=== PATIENT | male | born 1960 | race African-American/Black ===

== ENCOUNTER 2019-05-11 12:56 | Emergency (ER) | payer MEDICAID ==
[~2019-05-11] VITALS: Ht 188 cm; Wt 100.0 kg
[2019-05-11 14:59] VITALS: BP 126/86
[2019-05-11] MEDS ORDERED: KETOROLAC 60MG/2ML VIAL IM ONE (15:00)
[2019-05-11] MEDS ORDERED: DIAZEPAM 5 MG TABLET PO ONE (15:00)
== END 2019-05-11 15:52 | disposition home or self-care (01) ==
LOC: ER 12:56
DX: M54.40 Lumbago with sciatica, unspecified side (principal); G89.29 Other chronic pain; M54.9 Dorsalgia, unspecified; I10 Essential (primary) hypertension; Z59.0 Homelessness
CPT/HCPCS: 96372; 99283; J1885